=== PATIENT | male | born 1965 | race Caucasian/White ===

== ENCOUNTER 2021-06-19 22:03 | Inpatient (IN) | payer MEDICARE, OTHER ==
[2021-06-19] MEDS ORDERED: diphenhydrAMINE 50 MG/ML 1 ML VIAL IVP STA (22:43)
[2021-06-19] MEDS ORDERED: METOCLOPRAMIDE 5 MG/ML 2 ML VIAL IVP STA (22:43)
[2021-06-19] MEDS ORDERED: SODIUM CHLORIDE 0.9% 1,000 ML IV ONE (22:43)
--- NOTE | 2021-06-19 23:08 | CT ---
EXAMINATION TYPE: CT brain wo con DATE OF EXAM: 06/19/2021 COMPARISON: None HISTORY: Extreme anterior head pain CT DLP: 1335.4 mGycm Automated exposure control for dose reduction was used. There is poorly marginated hypodensity in the right posterior temporal lobe extending into the right occipital lobe. This area overall measures 6 x 4 cm. There appears to be some effacement of the occip ital horn right lateral ventricle. There is mild mass effect. The calvarium is intact. There is a steven ewhat rounded area of hypodensity within the lesion measuring 2 cm. IMPRESSION: There is edema in the right posterior temporal lobe with central rounded hypodensity. I would conside r the possibility of tumor or abscess. Follow-up recommended. Contrast CT scan or MR scan would BE he lpful for further evaluation.
[2021-06-19 23:16] LABS: ALT 37 U/L (4-49); AST 29 U/L (17-59); African American GFR (CKD) >90 (>60 ml/min/1.73 sqM); Albumin 3.9 g/dL (3.5-5.0); Alkaline Phosphatase 126 U/L (38-126); Anion Gap 12 mmol/L; Blood Urea Nitrogen 16 mg/dL (9-20); Calcium 9.4 mg/dL (8.4-10.2); Carbon Dioxide 20 mmol/L (22-30); Chloride 103 mmol/L (98-107); Glucose 263 mg/dL (74-99); Non-African American GFR(CKD) >90 (>60 ml/min/1.73 sqM); Potassium 4.4 mmol/L (3.5-5.1); Sodium 135 mmol/L (137-145); Total Bilirubin 0.9 mg/dL (0.2-1.3); Total Protein 7.5 g/dL (6.3-8.2)
[2021-06-19] MEDS ORDERED: RX INFO: IV CONTRAST WAS GIVEN 1 EACH MISC MISCELLANE PRN (23:36)
[2021-06-19 23:37] LABS: Basophils % (A) 0 %; Eosinophils % (A) 0 %; HCT 47.7 % (39.0-53.0); HGB 15.9 gm/dL (13.0-17.5); Lymphocytes # (A) 0.6 k/uL (1.0-4.8); Lymphocytes % (A) 5 %; MCH 31.6 pg (25.0-35.0); MCHC 33.3 g/dL (31.0-37.0); MCV 94.9 fL (80.0-100.0); Mean Platelet Volume 8.4; Monocytes # (A) 0.7 k/uL (0-1.0); Monocytes % (A) 5 %; Neutrophils # (A) 10.8 k/uL (1.3-7.7); Neutrophils % (A) 89 %; RBC 5.03 m/uL (4.30-5.90); RDW 15.2 % (11.5-15.5); WBC 12.2 k/uL (3.8-10.6)
[2021-06-19 23:54] LABS: Platelet Count 313 k/uL (150-450)
[2021-06-20] MEDS ORDERED: MORPHINE SULFATE 4 MG/ML SYRINGE IV STA (00:05)
--- NOTE | 2021-06-20 00:09 | ED ---
General Adult HPI - General Chief complaint: Altered Mental Status Stated complaint: Altered Mental Status Time Seen by Provider: 06/19/21 22:17 Source: patient, EMS Mode of arrival: EMS Limitations: altered mental status - History of Present Illness Initial comments: This patient is a 56-year-old man who arrives by ambulance. EMS had been called to the patient's residence because he did not seem like his usual self when his complaint of headache. Additional history from the patient's daughter reveals he has had intermittent headaches going back for a number of months. Patient denies neurologic symptoms. No change in vision. No weakness. -: days(s) Location: head Radiation: non-radiation Quality: aching Consistency: constant Improves with: none Worsens with: none Associated Symptoms: headaches Treatments Prior to Arrival: none - Related Data Previous Rx's Medication Instructions Recorded Albuterol Inhaler [Ventolin Hfa 1 puff INHALATION RT-TID #8 gm 06/12/21 Inhaler] Atorvastatin [Lipitor] 40 mg PO DAILY #30 tab 06/13/21 Fenofibrate [Lofibra] 160 mg PO DAILY #30 tab 06/13/21 INSULIN ASPART (NovoLOG) [NovoLOG 15 unit SQ AC-TID #10 ml 06/13/21 (formulary)] Insulin Detemir (Levemir) [Levemir] 30 unit SQ BID #10 ml 06/13/21 Allergies Allergy/AdvReac Type Severity Reaction Status Date / Time No Known Allergies Allergy Verified 06/19/21 22:43 Review of Systems ROS Statement: Those systems with pertinent positive or pertinent negative responses have been documented in the HPI. ROS Other: All systems not noted in ROS Statement are negative. Limitations: ROS unobtainable due to patients medical condition Constitutional: Denies: fever, weakness Eyes: Denies: vision change ENT: Denies: ear pain Respiratory: Denies: cough, dyspnea Cardiovascular: Denies: chest pain Gastrointestinal: Denies: abdominal pain, nausea, vomiting, diarrhea Genitourinary: Denies: dysuria Musculoskeletal: Denies: back pain Skin: Denies: rash Neurological: Reports: headache, confusion. Denies: weakness, numbness Past Medical History Past Medical History: Diabetes Mellitus, Hypertension, Pneumonia Additional Past Medical History / Comment(s): HTN but no meds taken for it, DKA, DM type 2 History of Any Multi-Drug Resistant Organisms: None Reported Past Surgical History: Orthopedic Surgery Additional Past Surgical History / Comment(s): back surgery Past Anesthesia/Blood Transfusion Reactions: No Reported Reaction Past Psychological History: No Psychological Hx Reported Smoking Status: Current every day smoker Past Alcohol Use History: None Reported Past Drug Use History: None Reported General Exam Limitations: no limitations General appearance: alert, in no apparent distress, anxious Head exam: Present: atraumatic, normocephalic, normal inspection Eye exam: Present: normal appearance, PERRL, EOMI. Absent: scleral icterus, conjunctival injection Neck exam: Present: normal inspection, full ROM. Absent: tenderness, meningismus Respiratory exam: Present: normal lung sounds bilaterally. Absent: respiratory distress, wheezes, rales, rhonchi, stridor Cardiovascular Exam: Present: regular rate, normal rhythm, normal heart sounds. Absent: systolic murmur, diastolic murmur, rubs, gallop GI/Abdominal exam: Present: soft. Absent: distended, tenderness, guarding, rebound, rigid Extremities exam: Present: normal inspection, normal capillary refill. Absent: pedal edema, calf tenderness Neurological exam: Present: alert, CN II-XII intact. Absent: altered Skin exam: Present: warm, dry, intact, normal color. Absent: rash Course Vital Signs 06/19/21 06/19/21 06/19/21 22:06 23:00 23:30 Temperature 99.5 F Pulse Rate 102 H 99 87 Respiratory 20 18 18 Rate Blood Pressure 149/90 158/94 152/79 O2 Sat by Pulse 93 L 96 96 Oximetry 06/20/21 06/20/21 06/20/21 00:00 01:00 02:00 Temperature Pulse Rate 60 114 H 100 Respiratory 18 18 18 Rate Blood Pressure 158/96 115/69 125/72 O2 Sat by Pulse 100 100 98 Oximetry 06/20/21 05:10 Temperature 99.5 F Pulse Rate 84 Respiratory 22 Rate Blood Pressure 127/78 O2 Sat by Pulse 93 L Oximetry Medical Decision Making - Lab Data Result diagrams: 06/19/21 22:51 06/19/21 22:51 Lab Results 06/19/21 06/19/21 06/19/21 Range/Units 22:51 22:51 22:51 WBC 12.2 H (3.8-10.6) k/uL RBC 5.03 (4.30-5.90) m/uL Hgb 15.9 (13.0-17.5) gm/dL Hct 47.7 (39.0-53.0) % MCV 94.9 (80.0-100.0) fL MCH 31.6 (25.0-35.0) pg MCHC 33.3 (31.0-37.0) g/dL RDW 15.2 (11.5-15.5) % Plt Count 313 D (150-450) k/uL MPV 8.4 Neutrophils % 89 % Lymphocytes % 5 % Monocytes % 5 % Eosinophils % 0 % Basophils % 0 % Neutrophils # 10.8 H (1.3-7.7) k/uL Lymphocytes # 0.6 L (1.0-4.8) k/uL Monocytes # 0.7 (0-1.0) k/uL Eosinophils # 0.0 (0-0.7) k/uL Basophils # 0.0 (0-0.2) k/uL Sodium 135 L (137-145) mmol/L Potassium 4.4 (3.5-5.1) mmol/L Chloride 103 (98-107) mmol/L Carbon Dioxide 20 L (22-30) mmol/L Anion Gap 12 mmol/L BUN 16 (9-20) mg/dL Creatinine 0.46 L (0.66-1.25) mg/dL Est GFR (CKD-EPI)AfAm >90 (>60 ml/min/1.73 sqM) Est GFR (CKD-EPI)NonAf >90 (>60 ml/min/1.73 sqM) Glucose 263 H (74-99) mg/dL Calcium 9.4 (8.4-10.2) mg/dL Total Bilirubin 0.9 (0.2-1.3) mg/dL AST 29 (17-59) U/L ALT 37 (4-49) U/L Alkaline Phosphatase 126 (38-126) U/L Troponin I <0.012 (0.000-0.034) ng/mL Total Protein 7.5 (6.3-8.2) g/dL Albumin 3.9 (3.5-5.0) g/dL Acetone, Qual Negative (Negative) Disposition Clinical Impression: Headache Narrative: Suspect brain malignancy right posterior temporal lobe Disposition: ADMITTED IP TO THIS HOSP Condition: Fair Is patient prescribed a controlled substance at d/c from ED?: No
[2021-06-20] MEDS ORDERED: LORazepam 2 MG/ML INJ IV STA (00:11)
--- NOTE | 2021-06-20 00:37 | CT ---
EXAMINATION TYPE: CT brain w con DATE OF EXAM: 06/20/2021 COMPARISON: Today HISTORY: AMS CT DLP: 1188.4 mGycm Automated exposure control for dose reduction was used. CONTRAST: Performed with IV Contrast, patient injected with 100 mL of Isovue 300. There are 2 ring-enhancing foci in the right posterior temporal parietal lobe. These are in contact w ith each other and measure 2.5 cm and 2.1 cm. There is some surrounding mild edema. There is apparent effacement of the occipital horn right lateral ventricle. There is no midline shift. Calvarium is in tact. There is normal aeration of the mastoid sinuses. IMPRESSION: There are 2 low density ring-enhancing masses in the right posterior temporal parietal lobe. There is thin ring of enhancement and mild adjacent edema. I would consider metastatic disease as well as carrol celina tumor such as glioma..
[2021-06-20] MEDS: DEXAMETHASONE SOD PHOSPHATE 10 MG/ML 1 ML VIAL IVP SCH ×2 (01:31→11:40)
[2021-06-20] MEDS ORDERED: NALOXONE 0.4 MG/ML 1 ML VIAL IV PRN (01:32)
[2021-06-20] MEDS ORDERED: MORPHINE SULFATE 4 MG/ML SYRINGE IV PRN (01:32)
[2021-06-20] MEDS: SODIUM CHLORIDE 0.9% 1,000 ML IV SCH (03:13)
[2021-06-20] MEDS: HYDROmorphone 0.5 MG/0.5 ML SYRINGE IVP PRN (04:12)
[2021-06-20] MEDS: ALBUTEROL NEBULIZED 2.5 MG/3 ML INHALATION SCH ×3 (08:51→21:30)
[2021-06-20] MEDS ORDERED: DEXAMETHASONE SOD PHOSPHATE 10 MG/ML 1 ML VIAL IVP SCH (09:00)
[2021-06-20 10:07] LABS: Glucose,Whole Blood 267 mg/dL (75-99)
[2021-06-20] MEDS ORDERED: HYDROmorphone 1 MG/ML 1 ML SYRINGE ONE (10:19)
[2021-06-20] MEDS ORDERED: HYDROmorphone 1 MG/ML 1 ML SYRINGE IVP PRN (10:23)
[2021-06-20] MEDS: INSULIN ASPART (NovoLOG) 100 UNIT/ML VIAL SQ SCH ×7 (10:30→20:18)
[2021-06-20] MEDS: ATORVASTATIN 40 MG TAB PO SCH (10:32)
[2021-06-20] MEDS ORDERED: RX INFO: IV CONTRAST WAS GIVEN 1 EACH MISC MISCELLANE PRN (10:38)
[2021-06-20] MEDS ORDERED: IOPAMIDOL CONTRAST (ORAL USE) VIAL PO PRN (10:38)
[2021-06-20] MEDS: INSULIN DETEMIR (LEVEMIR) 100 UNIT/ML SYR SQ SCH ×3 (11:19→21:25)
[2021-06-20] MEDS: FENOFIBRATE 160 MG TAB PO SCH (11:19)
[2021-06-20 11:59] LABS: Basophils % (A) 0 %; Eosinophils % (A) 0 %; HCT 42.3 % (39.0-53.0); HGB 14.4 gm/dL (13.0-17.5); Lymphocytes # (A) 0.7 k/uL (1.0-4.8); Lymphocytes % (A) 5 %; MCH 32.1 pg (25.0-35.0); MCV 94.5 fL (80.0-100.0); Mean Platelet Volume 7.9; Monocytes # (A) 0.8 k/uL (0-1.0); Monocytes % (A) 6 %; Neutrophils # (A) 11.4 k/uL (1.3-7.7); Neutrophils % (A) 88 %; Platelet Count 300 k/uL (150-450); RBC 4.48 m/uL (4.30-5.90); RDW 15.3 % (11.5-15.5)
[2021-06-20 12:15] LABS: African American GFR (CKD) >90 (>60 ml/min/1.73 sqM); Anion Gap 11 mmol/L; Blood Urea Nitrogen 11 mg/dL (9-20); Carbon Dioxide 21 mmol/L (22-30); Chloride 98 mmol/L (98-107); Glucose 266 mg/dL (74-99); Non-African American GFR(CKD) >90 (>60 ml/min/1.73 sqM); Potassium 4.3 mmol/L (3.5-5.1); Sodium 130 mmol/L (137-145)
--- NOTE | 2021-06-20 14:33 | P.CONS ---
History of Present Illness - Reason for Consult Consult date: 06/20/21 brain mass Requesting physician: Ray Yepez - Chief Complaint AMBRIZ, AMS - History of Present Illness Mr. Anderson is a pleasant male we have been asked to see because of ring enhancing lesion found in the post temporal parietal lobe on NADEEM. Pt daughter is at bedside and she provides some history. Pt has been c/o AMBRIZ for a few months, some mild confusion, this progressed rapidly over the last 3 days, the AMBRIZ was so severe and nothing was helping to relieve it so that is what led to the ER visit. Associated with disturbance in depth perception, denies syncopy or fall. Pt was juest treated for pneumonia one week ago, he has noted an increase in cough, he has smoked for 40 years. No vision changes, other neurological changes, fevers, sweats, unintentional wt. loss, dysphagia, odynophagia, N,V, chest pain, hemoptysis, abd pain, acute changes in bowel or bladder, i ncontinence or other pain. Review of Systems 14 point ROS is neg except as stated in HPI, daughter helped with history Past Medical History Past Medical History: Diabetes Mellitus, Hypertension, Pneumonia Additional Past Medical History / Comment(s): HTN but no meds taken for it, DKA, DM type 2 History of Any Multi-Drug Resistant Organisms: None Reported Past Surgical History: Orthopedic Surgery Additional Past Surgical History / Comment(s): back surgery, R leg surgery after fracture, elbow surgery, shoulder surgery Past Anesthesia/Blood Transfusion Reactions: No Reported Reaction Past Psychological History: No Psychological Hx Reported Smoking Status: Current every day smoker Past Alcohol Use History: None Reported Past Drug Use History: None Reported - Past Family History Mother Additional Family Medical History / Comment(s): dementia Father Family Medical History: Hypertension Medications and Allergies Home Medications Medication Instructions Recorded Confirmed Type Albuterol Inhaler [Ventolin Hfa 1 puff INHALATION RT-TID #8 gm 06/12/21 06/19/21 Rx Inhaler] Atorvastatin [Lipitor] 40 mg PO DAILY #30 tab 06/13/21 06/19/21 Rx Fenofibrate [Lofibra] 160 mg PO DAILY #30 tab 06/13/21 06/19/21 Rx INSULIN ASPART (NovoLOG) [NovoLOG 15 unit SQ AC-TID #10 ml 06/13/21 06/19/21 Rx (formulary)] Insulin Detemir (Levemir) [Levemir] 30 unit SQ BID #10 ml 06/13/21 06/19/21 Rx Allergies Allergy/AdvReac Type Severity Reaction Status Date / Time No Known Allergies Allergy Verified 06/19/21 22:43 Physical Exam Vitals: Vital Signs Temp Pulse Pulse Resp BP BP Pulse Ox 06/20/21 08:59 78 16 06/20/21 08:51 72 16 06/20/21 07:00 98 F 110 H 18 140/73 93 L 06/20/21 05:10 99.5 F 84 22 127/78 93 L 06/20/21 02:00 100 18 125/72 98 06/20/21 01:00 114 H 18 115/69 100 06/20/21 00:00 60 18 158/96 100 06/19/21 23:30 87 18 152/79 96 06/19/21 23:00 99 18 158/94 96 06/19/21 22:06 99.5 F 102 H 20 149/90 93 L Intake and Output 06/19/21 06/20/21 06/20/21 22:59 06:59 14:59 Other: Weight 104.78 kg 104.326 kg - Constitutional General appearance: average body habitus, cooperative, mild distress - EENT Eyes: anicteric sclerae, EOMI ENT: hearing grossly normal, normal oropharynx - Neck Neck: no lymphadenopathy - Respiratory Respiratory: bilateral: CTA, diminished - Cardiovascular Rhythm: regular Heart sounds: normal: S1, S2 Abnormal Heart Sounds: no systolic murmur, no diastolic murmur, no rub, no S3 Gallop, no S4 Gallop, no click, no other leg Peripheral Edema: bilateral: None - Gastrointestinal General gastrointestinal: no absent bowel sounds, no decreased bowel sounds, no distended, no hepatomegaly, no hyperactive bowel sounds, normal bowel sounds, no organomegaly, no rigid, no scaphoid, soft, no splenomegaly, no tenderness, no umbilical hernia, no ventral hernia - Musculoskeletal Musculoskeletal: strength equal bilaterally - Psychiatric Psychiatric: A&O x's 3, appropriate affect, intact judgment & insight Results CBC & Chem 7: 06/20/21 11:40 06/20/21 11:40 Labs: Abnormal Lab Results - Last 24 Hours (Table) 1006/19/21 06/20/21 Range/Units 22:51 22:51 09:55 WBC 12.2 H (3.8-10.6) k/uL Neutrophils # 10.8 H (1.3-7.7) k/uL Lymphocytes # 0.6 L (1.0-4.8) k/uL Sodium 135 L (137-145) mmol/L Carbon Dioxide 20 L (22-30) mmol/L Creatinine 0.46 L (0.66-1.25) mg/dL Glucose 263 H (74-99) mg/dL POC Glucose (mg/dL) 267 H (75-99) mg/dL MRI - head: report reviewed (with and without contrast reports reviewed) Assessment and Plan (1) Brain mass Current Visit: Yes Status: Acute Code(s): G93.89 - OTHER SPECIFIED DISORDERS OF BRAIN SNOMED Code(s): 829370676 (2) Headache Current Visit: Yes Status: Acute Code(s): R51.9 - HEADACHE, UNSPECIFIED SNOMED Code(s): 20291105 Plan: Dr. Young discussed with pt and daughter concerning findings on MRI brain. This could represent a primary brain tumor or metastatic disease. CT CAP ordered to evaluate for any other lesions that would be less invasive for biopsy. If no other lesion found, pt will have to be referred to Neurosurgeon for biopsy. Reviewed that it is necessary to have tissue confirmation in order to discuss treatment options that would be available and prognosis. Discussed case with Rad Onc who will review the MRI. Would like to hold off on starting steroids since steroids can alter findings if primary happens to be a lymphoma. attests: I have seen and examined pt, performed H&P, developed impression and plan of care. Discussed with dictator. Agree with documentation, documented as a scribe.
[2021-06-20 16:30] LABS: Glucose,Whole Blood 325 mg/dL (75-99)
[2021-06-20] MEDS: NICOTINE 14MG/24HR PATCH TRANSDERM SCH (16:48)
[2021-06-20] MEDS: ONDANSETRON 4 MG/2 ML VIAL IVP PRN (16:51)
[2021-06-20] MEDS ORDERED: KETOROLAC 15 MG/ML 1 ML VIAL IVP SCH (18:00)
[2021-06-20] MEDS ORDERED: KETOROLAC 15 MG/ML 1 ML VIAL IVP PRN (18:08)
--- NOTE | 2021-06-20 19:07 | MR ---
EXAMINATION TYPE: MR brain wo/w con DATE OF EXAM: 06/20/2021 COMPARISON: None HISTORY: Headache, evaluate posterior temporal mass. CONTRAST: Standard multiplanar, multisequence MRI departmental protocol utilizing 10 mL intravenous Gadavist ga dolinium contrast. There is a bilobed fluid signal mass in the right posterior temporal lobe. There is thin ring of enha ncement around the mass with contrast. The mass contains 2 lobes which measure 3.3 cm and 2.3 cm. The re is some white matter edema adjacent to the mass in the right posterior temporal lobe. There is steven e mild mass effect upon the occipital horn of the right lateral ventricle. There is no midline shift. Cerebellum is intact. There is normal enhancement of the venous sinuses. No other intra-axial enhanc ing mass identified. The corpus callosum is intact. Brainstem is intact. IMPRESSION: Bilobed ring enhancing mass right posterior temporal lobe with moderate surrounding white matter dang a. Mild mass effect. I would consider possibilities of primary brain tumor such as a glioma as well a s brain abscess. Metastatic disease is also possible.
[2021-06-20 20:01] LABS: Glucose,Whole Blood 233 mg/dL (75-99)
[2021-06-20] MEDS: PANTOPRAZOLE 40 MG/10 ML VIAL IVP SCH (20:19)
[2021-06-20] MEDS ORDERED: DEXAMETHASONE SOD PHOSPHATE 4 MG/ML 1 ML VIAL IVP SCH (21:00)
--- NOTE | 2021-06-20 21:07 | P.HPIM ---
History of Present Illness H&P Date: 06/20/21 This is a 56-year-old male with past medical history significant for a tobacco use with 40 year pack history, diabetes mellitus type 2, hypertension, hyper lipidemia, pneumonia, multiple orthopedic back surgeries with lumbar fusion. He is currently smoking half a pack per day however at his heaviest was smoking upwards of 2 packs per day. Patient is occasional drinker and denies any illicit drug use. Patient is also a diabetic type II, he checks his blood sugar at home is usually running in the 200s. Patient presented to the with complaints of a headache over his right temporal region as well as over his right forehead above his eye. He does state that he has had visual changes in both eyes and blurry vision any change in his depth perception. He has never had a routine eye exam. Patient denies any dizziness or lightheadedness however he does state that when he stands he does h ave some difficulty as he feels like the room is spinning. He was supposed to follow-up with ENT for evaluation for vertigo. This headache has been constant in severity unchanging and nonradiating has been persistent for the last 2 months. At the same time patient has stated that he has lower back pain has increased from his chronic for the last 2 months as well as a persistent productive cough for the last 2 months. Pt also admits to nausea and appetite changes last 2 months as well and does report some looser stools however there has been no blood in the stool. Patient does report a 40 pound weight loss over the last 5-[address] with contrast on admission shows 2 low density ring-enhancing masses in the right posterior temporoparietal lobe. There is then recurring of enhancement and mild adjacent edema. Consider metastatic disease as well as primary tumor such as glioma. Labs this admission include a WBC of 12.2, sodium 135, glucose of 263, troponin negative. His negative for acetone and his Covid PCR is negative. Oncology was consulted, CT chest abdomen pelvis with contrast agent was ordered as well as MR brain with and without contrast. Reports constant headache in the right temporal region REVIEW OF SYSTEMS: CONSTITUTIONAL: No fever, no malaise, no fatigue. HEENT: Reports constant headache in the right temporal region, reports vision changes in the last 2 months, bilateral eyes, blurry, with change in depth perception CARDIOVASCULAR: No chest pain, orthopnea, PND, no palpitations, no syncope. PULMONARY: No shortness of breath. Reports productive cough with clear to yellow sputum new in the last 2 months GASTROINTESTINAL: No diarrhea, reports n/v. no abdominal tenderness. NEUROLOGICAL: No weakness, no numbness. Reports constant deep throbbing headche over right forehead for the last 2 months. HEMATOLOGICAL: Denies any bleeding or petechiae. GENITOURINARY: Denies any burning micturition, frequency, or urgency. MUSCULOSKELETAL/RHEUMATOLOGICAL: Denies any joint pain, swelling. Reports chronic lumbar back pain, with changes in pain in the last 2 months. ENDOCRINE: Denies any polyuria or polydipsia. The rest of the 14-point review of systems is negative. PHYSICAL EXAMINATION: GENERAL: The patient is alert and oriented x3, not in any acute distress. Well developed, well nourished. HEENT: Pupils are round and equally reacting to light. EOMI. No scleral icterus. No conjunctival pallor. Normocephalic, atraumatic. No pharyngeal erythema. No thyromegaly. CARDIOVASCULAR: S1 and S2 present. No murmurs, rubs, or gallops. PULMONARY: Chest is clear to auscultation, no wheezing or crackles. ABDOMEN: Soft, nontender, nondistended, normoactive bowel sounds. No palpable organomegaly. MUSCULOSKELETAL: No joint swelling or deformity. EXTREMITIES: No cyanosis, clubbing, or pedal edema. NEUROLOGICAL: Gross neurological examination did not reveal any focal deficits. SKIN: No rashes. 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 Pending MR brain and CT Chest, abdomen, pelvis Adjust insulin for hyperglycemia Pain management Repeat labs Past Medical History Past Medical History: Diabetes Mellitus, Hypertension, Pneumonia Additional Past Medical History / Comment(s): HTN but no meds taken for it, DKA, DM type 2 History of Any Multi-Drug Resistant Organisms: None Reported Past Surgical History: Orthopedic Surgery Additional Past Surgical History / Comment(s): back surgery, R leg surgery after fracture, elbow surgery, shoulder surgery Past Anesthesia/Blood Transfusion Reactions: No Reported Reaction Past Psychological History: No Psychological Hx Reported Smoking Status: Current every day smoker Past Alcohol Use History: None Reported Past Drug Use History: None Reported - Past Family History Mother Additional Family Medical History / Comment(s): dementia Father Family Medical History: Hypertension Medications and Allergies Home Medications Medication Instructions Recorded Confirmed Type Albuterol Inhaler [Ventolin Hfa 1 puff INHALATION RT-TID #8 gm 06/12/21 06/19/21 Rx Inhaler] Atorvastatin [Lipitor] 40 mg PO DAILY #30 tab 06/13/21 06/19/21 Rx Fenofibrate [Lofibra] 160 mg PO DAILY #30 tab 06/13/21 06/19/21 Rx INSULIN ASPART (NovoLOG) [NovoLOG 15 unit SQ AC-TID #10 ml 06/13/21 06/19/21 Rx (formulary)] Insulin Detemir (Levemir) [Levemir] 30 unit SQ BID #10 ml 06/13/21 06/19/21 Rx Allergies Allergy/AdvReac Type Severity Reaction Status Date / Time No Known Allergies Allergy Verified 06/19/21 22:43 Physical Exam Vitals: Vital Signs Temp Pulse Pulse Resp BP BP Pulse Ox 06/20/21 08:59 78 16 06/20/21 08:51 72 16 06/20/21 07:00 98 F 110 H 18 140/73 93 L 06/20/21 05:10 99.5 F 84 22 127/78 93 L 06/20/21 02:00 100 18 125/72 98 06/20/21 01:00 114 H 18 115/69 100 06/20/21 00:00 60 18 158/96 100 06/19/21 23:30 87 18 152/79 96 06/19/21 23:00 99 18 158/94 96 06/19/21 22:06 99.5 F 102 H 20 149/90 93 L Intake and Output 06/19/21 06/20/21 06/20/21 22:59 06:59 14:59 Other: Weight 104.78 kg 104.326 kg Results CBC & Chem 7: 10/27/21 11:40 06/20/21 11:40 Labs: Abnormal Lab Results - Last 24 Hours (Table) 06/19/21 06/19/21 06/20/21 Range/Units 22:51 22:51 09:55 WBC 12.2 H (3.8-10.6) k/uL Neutrophils # 10.8 H (1.3-7.7) k/uL Lymphocytes # 0.6 L (1.0-4.8) k/uL Sodium 135 L (137-145) mmol/L Carbon Dioxide 20 L (22-30) mmol/L Creatinine 0.46 L (0.66-1.25) mg/dL Glucose 263 H (74-99) mg/dL POC Glucose (mg/dL) 267 H (75-99) mg/dL Assessment and Plan Time with Patient: Greater than 30
[2021-06-20] MEDS: HEPARIN SODIUM,PORCINE/PF 5,000 UNIT/0.5 ML SYRINGE SQ SCH (22:15)
[2021-06-20] MEDS: ACETAMINOPHEN TAB 500 MG TAB PO PRN (23:50)
[2021-06-21] MEDS: ONDANSETRON 4 MG/2 ML VIAL IVP PRN ×3 (00:42→17:14)
[2021-06-21] MEDS: HYDROmorphone 0.5 MG/0.5 ML SYRINGE IVP PRN ×5 (00:49→15:04)
[2021-06-21 01:45] LABS: Glucose,Whole Blood 214 mg/dL (75-99)
[2021-06-21] MEDS: SODIUM CHLORIDE 0.9% 1,000 ML IV SCH (03:14)
[2021-06-21] MEDS: ACETAMINOPHEN TAB 500 MG TAB PO PRN (06:03)
[2021-06-21] MEDS ORDERED: ONDANSETRON 4 MG/2 ML VIAL IVP STA (07:24)
[2021-06-21 08:00] LABS: Glucose,Whole Blood 241 mg/dL (75-99)
[2021-06-21] MEDS: NICOTINE 14MG/24HR PATCH TRANSDERM SCH (08:02)
[2021-06-21] MEDS: ATORVASTATIN 40 MG TAB PO SCH (08:02)
[2021-06-21] MEDS: HEPARIN SODIUM,PORCINE/PF 5,000 UNIT/0.5 ML SYRINGE SQ SCH (08:02)
[2021-06-21] MEDS: INSULIN ASPART (NovoLOG) 100 UNIT/ML VIAL SQ SCH ×6 (08:03→17:14)
[2021-06-21] MEDS: INSULIN DETEMIR (LEVEMIR) 100 UNIT/ML SYR SQ SCH (08:03)
[2021-06-21] MEDS: PANTOPRAZOLE 40 MG/10 ML VIAL IVP SCH (08:04)
[2021-06-21] MEDS: FENOFIBRATE 160 MG TAB PO SCH (08:04)
[2021-06-21 08:24] LABS: Basophils % (A) 0 %; Eosinophils % (A) 0 %; HGB 14.8 gm/dL (13.0-17.5); Lymphocytes % (A) 11 %; MCH 31.5 pg (25.0-35.0); MCHC 32.8 g/dL (31.0-37.0); MCV 96.1 fL (80.0-100.0); Mean Platelet Volume 7.7; Monocytes # (A) 0.5 k/uL (0-1.0); Monocytes % (A) 5 %; Neutrophils # (A) 7.4 k/uL (1.3-7.7); Neutrophils % (A) 83 %; Platelet Count 290 k/uL (150-450); RBC 4.68 m/uL (4.30-5.90); RDW 14.6 % (11.5-15.5)
[2021-06-21] MEDS: ALBUTEROL NEBULIZED 2.5 MG/3 ML INHALATION SCH ×2 (08:26→15:14)
[2021-06-21 08:33] LABS: ALT 26 U/L (4-49); AST 20 U/L (17-59); African American GFR (CKD) >90 (>60 ml/min/1.73 sqM); Albumin 3.5 g/dL (3.5-5.0); Alkaline Phosphatase 111 U/L (38-126); Anion Gap 8 mmol/L; Blood Urea Nitrogen 16 mg/dL (9-20); Calcium 9.4 mg/dL (8.4-10.2); Carbon Dioxide 24 mmol/L (22-30); Chloride 99 mmol/L (98-107); Glucose 246 mg/dL (74-99); Magnesium 1.9 mg/dL (1.6-2.3); Non-African American GFR(CKD) >90 (>60 ml/min/1.73 sqM); Potassium 4.4 mmol/L (3.5-5.1); Sodium 131 mmol/L (137-145); Total Bilirubin 0.9 mg/dL (0.2-1.3)
--- NOTE | 2021-06-21 09:59 | CT ---
EXAMINATION TYPE: CT ChestAbdPelvis w con DATE OF EXAM: 06/21/2021 COMPARISON: CTA chest 12 days ago. HISTORY: brain mass CT DLP: 2290.4 mGycm. Automated Exposure Control for Dose Reduction was Utilized. CONTRAST: CT scan of the thorax, abdomen and pelvis is performed without oral but with IV Contrast, patient inj ected with 100 mL of Isovue 300. FINDINGS: LUNGS: Low lung volumes redemonstrated. There is dependent atelectasis. There is new posterior lower lung atelectasis and/or developing consolidation. No pleural effusion or pneumothorax seen bilaterall y MEDIASTINUM: There are no greater than 1 cm hilar or mediastinal lymph nodes. No cardiomegaly or pe ricardial effusion is seen. LIVER/GB: Liver remains heterogeneously hypodense suggesting diffuse fatty infiltration. PANCREAS: No significant abnormality is seen. SPLEEN: No significant abnormality is seen. ADRENALS: No significant abnormality is seen. KIDNEYS: Symmetric cortical medullary uptake and excretion without hydronephrosis seen bilaterally. F ew scattered simple-appearing thin-walled cysts throughout both kidneys. BOWEL: Suboptimal evaluation of bowel without enteric contrast. Stomach poorly distended and thus sub optimally evaluated. No suspicious small or large bowel dilatation. Normal-appearing appendix in the right lower quadrant from the cecum. Scattered colonic diverticulosis, no convincing CT evidence for acute diverticulitis. GENITAL ORGANS: Prostate gland mildly enlarged bulging on bladder base.. LYMPH NODES: No greater than 1cm abdominal or pelvic lymph nodes are appreciated. OSSEOUS STRUCTURES: Postsurgical change to the lumbar spine. There is reversal of normal lumbar curva ture. Metallic disc material at L2-L3 level with left lateral fusion hardware. Artificial hyperdense disc material at L4-L5 and L5-S1 level. Less than optimal posterior positioning of the disc material L5-S1 level. Some bridging osteophytes and ossific fusion in the mid to lower lumbar spine. Posterior decompression changes. Mid to lower lumbar spine facet arthropathy. Well-defined lucency from prior surgical change in the upper sacrum. OTHER: No significant additional abnormality is seen. IMPRESSION: No obvious mass or adenopathy to suggest primary neoplasm.
[2021-06-21 11:47] LABS: Glucose,Whole Blood 183 mg/dL (75-99)
[2021-06-21] MEDS ORDERED: Magnesium Replacement Protocol 1 EACH MISC MISCELLANE PRN (12:01)
[2021-06-21] MEDS: MAGNESIUM SULFATE-D5W PMX 1 GM in DEXTROSE/WATER 1 100ML.BAG IVPB SCH (13:12)
[2021-06-21] MEDS ORDERED: DEXAMETHASONE SOD PHOSPHATE 4 MG/ML 1 ML VIAL IVP SCH ×3 (14:00→16:00)
--- NOTE | 2021-06-21 14:18 | P.PN ---
Subjective Progress Note Date: 06/21/21 This is a 56-year-old male with past medical history significant for a tobacco use with 40 year pack history, diabetes mellitus type 2, hypertension, hyper lipidemia, pneumonia, multiple orthopedic back surgeries with lumbar fusion. He is currently smoking half a pack per day however at his heaviest was smoking upwards of 2 packs per day. Patient is occasional drinker and denies any illicit drug use. Patient is also a diabetic type II, he checks his blood sugar at home is usually running in the 200s. Patient presented to the with complaints of a headache over his right temporal region as well as over his right forehead above his eye. He does state that he has had visual changes in both eyes and blurry vision any change in his depth perception. He has never had a routine eye exam. Patient denies any dizziness or lightheadedness however he does state that when he stands he does have some difficulty as he feels like the room is spinning. He was supposed to follow-up with ENT for evaluation for vertigo. This headache has been constant in severity unchanging and nonradiating has been persistent for the last 2 months. At the same time patient has stated that he has lower back pain has increased from his chronic for the last 2 months as well as a persistent productive cough for the last 2 months. Pt also admits to nausea and appetite changes last 2 months as well and does report some looser stools however there has been no blood in the stool. Patient does report a 40 pound weight loss over the last 5-[address] with contrast on admission shows 2 low density ring-enhancing masses in the right posterior temporoparietal lobe. There is then recurring of enhancement and mild adjacent edema. Consider metastatic disease as well as primary tumor such as glioma. Labs this admission include a WBC of 12.2, sodium 135, glucose of 263, troponin negative. His negative for acetone and his Covid PCR is negative. Oncology was consulted, CT chest abdomen pelvis with contrast agent was ordered as well as MR brain with and without contrast. Reports constant headache in the right temporal region 06/21/2021 Patient is resting in the bed from examination. His daughters remains at bedside. Brain MRI was completed that shows a bilobed ring-enhancing mass right posterior temporal lobe with moderate surrounding white matter edema. There is mild mass effect. Chest abdomen pelvis CT shows no obvious mass or adenopathy to suggest primary neoplasm. There are no greater than 1 cm abdominal or pelvic lymph nodes. There are no greater than 1 cm hilar or mediastinal lymph nodes. There are postsurgical changes to the lumbar spine. There are posterior decompression changes, as well as metallic disc material at all to through L3 with left lateral fusion hardware as well as hyperdense disc material at L4 to L5 and L5 to S1. There is less than optimal posterior positioning of the disc material L5 to S1. Labs today show a blood count panel that is unremarkable. Sodium level is 131, BUN 16, creatinine 0.50. Glucose remains elevated in the low 200s, 183 last checked. Magnesium today is 1.9 today we gave 2 bags of replacement. Patient was evaluated by oncology services who feels that findings on imaging could represent a primary brain tumor or metastatic disease. Oncology recommends transfer for neurosurgery for biopsy as there was no other lesions found on CT CAP. We consulted neurology services for evaluation of this patient. Recommend starting IV Decadron 4 mg every 6 hours. Also agree with transfer to higher level of care for consult to neurosurgery. Because patient is symptomatic, he has ongoing constant headache in the right temporal region as well as vision changes with blurry vision and changes to his depth perception. ROS Constitutional: Denied any fatigue denied any fever. Cardio vascular: denied any chest pain, palpitations Gastrointestinal denied any nausea vomiting Pulmonary: Denied any shortness of breath , reports intermittent dry cough new- onset 2 months ago Neurologic: Reports headache right temporal lobe, reports blurry vision, reports changes to depth perception, denies numbness or tingling, denies focal weakness All inpatient medications were reviewed and appropriate changes in these m edications as dictated in the interval history and assessment and plan. PHYSICAL EXAMINATION: GENERAL: The patient is alert and oriented x3, not in any acute distress. Well developed, well nourished. HEENT: Pupils are round and equally reacting to light. EOMI. No scleral icterus. No conjunctival pallor. Normocephalic, atraumatic. No pharyngeal erythema. No thyromegaly. CARDIOVASCULAR: S1 and S2 present. No murmurs, rubs, or gallops. PULMONARY: Chest is clear to auscultation, no wheezing or crackles. ABDOMEN: Soft, nontender, nondistended, normoactive bowel sounds. No palpable organomegaly. Abdomen is round and obese MUSCULOSKELETAL: No joint swelling or deformity. EXTREMITIES: No cyanosis, clubbing, or pedal edema. NEUROLOGICAL: Gross neurological examination did not reveal any focal deficits. SKIN: No rashes. Assessment and plan Assessment Brain lesion of unknown etiology, primary lesion versus metastasis, MRI follow- up confirmed lesion CT chest abdomen and pelvis was essentially negative for any obvious mass or adenopathy to suggest a primary source for the lesion Headache new-onset 2 months ago, workup in progress Leukocytosis, reactive Hyponatremia, proabably from SIADH d/t uncontrolled pain History of chronic tobacco use with a 40+ pack-year history Diabetes mellitus type 2 with hyperglycemia, recent new-onset admitted for DKA 2 weeks ago, A1c 16.8 Hypertension Hyperlipidemia Full Code GI Prophylaxis: Protonix DVT Prophylaxis: SQ Hep Plan Begin IV push Decadron 4 mg every 6 hours MR brain completed and CT chest abdomen pelvis has been completed Adjust insulin for hyperglycemia Pain management Repeat labs Pending transfer to higher level of care for consult to neurosurgery Objective - Vital Signs Vital signs: Vital Signs Temp 98.7 F 06/21/21 09:45 Pulse 84 06/21/21 09:45 Resp 16 06/21/21 09:45 BP 129/66 06/21/21 09:45 Pulse Ox 93 L 06/21/21 09:45 Intake & Output 06/20/21 06/21/21 06/21/21 18:59 06:59 18:59 Intake Total 20 Balance 20 Weight 104.326 kg Intake: IV 20 0.9 20 Other: # Voids 2 - Labs CBC & Chem 7: 06/21/21 07:38 06/21/21 07:38 Labs: Abnormal Lab Results - Last 24 Hours (Table) 06/20/21 06/20/21 06/20/21 Range/Units 11:40 11:40 16:28 WBC 13.0 H (3.8-10.6) k/uL Neutrophils # 11.4 H (1.3-7.7) k/uL Lymphocytes # 0.7 L (1.0-4.8) k/uL Sodium 130 L (137-145) mmol/L Carbon Dioxide 21 L (22-30) mmol/L Creatinine 0.45 L (0.66-1.25) mg/dL Glucose 266 H (74-99) mg/dL POC Glucose (mg/dL) 325 H (75-99) mg/dL 06/20/21 06/21/21 06/21/21 Range/Units 20:00 01:42 07:38 WBC (3.8-10.6) k/uL Neutrophils # (1.3-7.7) k/uL Lymphocytes # (1.0-4.8) k/uL Sodium 131 L (137-145) mmol/L Carbon Dioxide (22-30) mmol/L Creatinine 0.50 L (0.66-1.25) mg/dL Glucose 246 H (74-99) mg/dL POC Glucose (mg/dL) 233 H 214 H (75-99) mg/dL 06/21/21 Range/Units 07:58 WBC (3.8-10.6) k/uL Neutrophils # (1.3-7.7) k/uL Lymphocytes # (1.0-4.8) k/uL Sodium (137-145) mmol/L Carbon Dioxide (22-30) mmol/L Creatinine (0.66-1.25) mg/dL Glucose (74-99) mg/dL POC Glucose (mg/dL) 241 H (75-99) mg/dL Assessment and Plan Time with Patient: Greater than 30
--- NOTE | 2021-06-21 14:44 | P.CNNES ---
History of Present Illness Consult date: 06/21/21 Requesting physician: Vi De Guzman Reason for Consult: headache History of Present Illness: This is a 56-year-old gentleman with history newly diagnosed brain mass, diabetes mellitus, hypertension, hyperlipidemia, chronic low back pain with multiple surgeries, chronic tobacco user who presented emergency department on 06/19/2021 because of a complaint of a headache. His daughter is at bedside and helps with the history. Patient has been having headache for the ast 2 1/2 months. The headaches are over the bilateral frontal region without radiation, are sharp, 8-19/10, constant, has some photophobia and phonophobia. Also has nausea and vomiting associated with it. The headaches slightly improves with OTC Tylenol (taking 500mg 4 tab bid). Per daughter his balance has been off and his vision is affected as in he tries to cone picker things but he is off target. He denies any focal weakness, or new numbness. Feels he is having difficulty swallowing for the past 2 1/2 month with solids and liquids. He has not seen anyone since was having insurance issues and was Living in [place]. He back to [place] November 2020. During the hospital stay, patient had CT of the head which was reported as a 2 low density ring-enhancing masses in the right posterior temporal parietal lobe. There is thin ringing off and has met and mild adjacent edema. Consider metastasis disease as well as primary tumor such as glioma. The patient had an MRI of brain with and without which is reported as bilobed ring enhancing mass ring posterior temporal lobe with moderate surrounding white matter edema. Mild mass effect. I would consider possibly a primary brain tumor such as glioma as well as a brain abscess. Metastasis disease is also possible. I personally reviewed the MRI the brain and I felt that the patient does have a mass over the right posterotemporal parietal and the somewhat over occipital region. There is also vasogenic edema that he had on the imaging. Initially the primary team started the patient on Decadron but the oncology asked to be held since they were concerned that the patient might have lymphoma and they did not want to be masked. Other workup in the hospital consisted of: Initial vital signs is blood pressure of 140/90, heart rate of 102, respiratory of 20, temperature of 99.5 Fahrenheit oral and pulse ox of 93% room air. Since the patient has been the hospital the patient has been afebrile. Initial white blood cells 12.2 thousand and the predominantly neutrophilic but t hen the repeated blood blood cell is 9.0. Initial sodium is 135 and a most recent sodium is 131. Creatinine is 0.45, calcium is 9.0, magnesium 1.9. Initial glucose is 263. Lerma virus PCR was not detected. CT abdomen and pelvis reported as no obvious mass or adenopathy to suggest primary neoplasm. Review of Systems Review of system: The 12 point system was reviewed and apparent positive and negative per HPI. Past Medical History Past Medical History: Diabetes Mellitus, Hypertension, Pneumonia Additional Past Medical History / Comment(s): HTN but no meds taken for it, DKA, DM type 2 History of Any Multi-Drug Resistant Organisms: None Reported Past Surgical History: Orthopedic Surgery Additional Past Surgical History / Comment(s): back surgery, R leg surgery after fracture, elbow surgery, shoulder surgery Past Anesthesia/Blood Transfusion Reactions: No Reported Reaction Past Psychological History: No Psychological Hx Reported Smoking Status: Current every day smoker Past Alcohol Use History: None Reported Past Drug Use History: None Reported - Past Family History Mother Additional Family Medical History / Comment(s): dementia Father Family Medical History: Hypertension Medications and Allergies Home Medications Medication Instructions Recorded Confirmed Type Albuterol Inhaler [Ventolin Hfa 1 puff INHALATION RT-TID #8 gm 06/12/21 06/19/21 Rx Inhaler] Atorvastatin [Lipitor] 40 mg PO DAILY #30 tab 06/13/21 06/19/21 Rx Fenofibrate [Lofibra] 160 mg PO DAILY #30 tab 06/13/21 06/19/21 Rx INSULIN ASPART (NovoLOG) [NovoLOG 15 unit SQ AC-TID #10 ml 06/13/21 06/19/21 Rx (formulary)] Insulin Detemir (Levemir) [Levemir] 30 unit SQ BID #10 ml 06/13/21 06/19/21 Rx Allergies Allergy/AdvReac Type Severity Reaction Status Date / Time No Known Allergies Allergy Verified 06/19/21 22:43 Physical Examination - Vital Signs Vital Signs: Vital Signs Temp Pulse Pulse Resp BP Pulse Ox 06/21/21 09:45 98.7 F 84 16 129/66 93 L 06/21/21 08:28 88 06/21/21 01:45 98.4 F 84 15 135/81 95 06/20/21 19:20 98.1 F 85 15 119/69 98 06/20/21 15:00 98 F 99 18 138/70 94 L Intake and Output 06/20/21 06/21/21 06/21/21 22:59 06:59 14:59 Other: Voiding Method Toilet # Voids 2 2 GENERAL: The patient is lying in bed and is in moderate acute distress. CHEST: The heart rate is regular rate rhythm. No murmurs to auscultation. LUNG: Clear to auscultation bilaterally no wheezing noted throughout. Not labored breathing. ABDOMEN/GI: Bowel sounds present in all 4 quadrants. No tenderness to palpation throughout. NEUROLOGICAL: Higher mental function: The patient is awake, alert, oriented to self and place. He is oriented to year but did not know the month. Patient is able to name objects correctly (pen, watch and glasses). Patient is following commands. No aphasia and no neglect. Cranial nerves: The pupils are round, equal and reactive to light. The patient has ptosis over the right eye. Visual baird is left lower quadrant homonymous anopsia to confrontation throughout. Extraocular movement is intact no nystagmus is noted. Facial sensation is normal to touch throughout. The facial strength is normal throughout. Hearing is normal bilaterally to hand rub. Tongue is midline and moved [id number] without any difficulty. No dysarthria is noted. Shoulder shrug is normal bilaterally. Motor: Gait is deferred. The strength is uppers is 4+ to 5- symeterically. Knee extension is 5- otherwise 5/5 bilaterally. Normal tone. Normal tone throughout. Cerebellum: Normal finger to nose bilaterally. Sensation: Sensation is decreased from knee down to tips of toes bilaterally (old since his back surgeries per daughter). Otherwise normal to touch throughout. Reflexes (right/left): 1+ throughout uppers. Patellars are 0 and ankles are 1+ Plantars are mute bilaterally. Results - Laboratory Findings CBC and BMP: 06/21/21 07:38 06/21/21 07:38 Abnormal Lab Findings: Abnormal Labs 06/19/21 06/19/21 06/20/21 22:51 22:51 09:55 WBC 12.2 H Neutrophils # 10.8 H Lymphocytes # 0.6 L Sodium 135 L Carbon Dioxide 20 L Creatinine 0.46 L Glucose 263 H POC Glucose (mg/dL) 267 H 06/20/21 06/20/21 06/20/21 11:40 11:40 16:28 WBC 13.0 H Neutrophils # 11.4 H Lymphocytes # 0.7 L Sodium 130 L Carbon Dioxide 21 L Creatinine 0.45 L Glucose 266 H POC Glucose (mg/dL) 325 H 06/20/21 06/21/21 06/21/21 20:00 01:42 07:38 WBC Neutrophils # Lymphocytes # Sodium 131 L Carbon Dioxide Creatinine 0.50 L Glucose 246 H POC Glucose (mg/dL) 233 H 214 H 06/21/21 06/21/21 07:58 11:44 WBC Neutrophils # Lymphocytes # Sodium Carbon Dioxide Creatinine Glucose POC Glucose (mg/dL) 241 H 183 H Assessment and Plan Assessment: Brain mass over predominantly right posterior temporal/parietal/occipital region. Appears primary (Radiology team stated possibly abscess as well (but I feel less likely) Vasogenic edema due to above Cephaglia due to above Chronic low back pain with multiple surgeries (fusion and per daughter lumbar and possibly thoracic and had total of 7 and last surgery was 2018) Diabetes mellitus History of hypertension History of hyperlipidemia Chronic tobacco use more than 40+ packs history (was smoking 2 PPD but has cut down to 1/2PPD) Plan: Recommend Decadron 4 mg every 4 hours. Every 4 hours neuro checks On Zofran 4 mg IV every 6 hours when necessary Oncology the team is on board. Will deffer his sugar management to the primary team. We'll defer the rest of medical management with the primary team. Recommend the patient to be transfered to a teritiary facility for evaluation by neurosurgery team. The plan is discussed with the patient and his daughter (Cristiane) who is at bedside. Also discussed with the primary team. Thank you for the Consultation. Hima Vázquez M.D. Neuro-hospitalist Time with Patient: Greater than 30
[2021-06-21 14:51] VITALS: BP 121/68; PULSE 77; RESP 20; TEMP 98.2
[2021-06-21 17:01] LABS: Glucose,Whole Blood 120 mg/dL (75-99)
[2021-06-21] MEDS ORDERED: PANTOPRAZOLE 40 MG TABLET PO SCH (21:00)
--- NOTE | 2021-06-22 14:30 | P.DS ---
Providers Date of admission: 06/20/21 01:32 Attending physician: Jarek Anderson Consults: 06/20/21 01:35 Consult Physician Routine Consulting Provider: Good Young Consult Reason/Comments: Right posterior-temporal brain mass Do you want consulting provider notified?: Yes 06/21/21 11:59 Consult Physician Routine Consulting Provider: Hima Vázquez Consult Reason/Comments: headache Do you want consulting provider notified?: Yes Primary care physician: Stated None Hospital Course: As recommended by neurology and oncology services patient was transferred to tertiary [facility] for evaluation by neurosurgery for diagnostics of brain lession found on brain CT and MR Brain. Patient was transferred to [facility] via [facility] in the evening of 06/21/2021. Accepting physician was Dr. Cole with Neurosurgery. Please see progress note for further information regarding patient and transfer. Patient Condition at Discharge: Fair Plan - Discharge Summary Discharge Rx Participant: Yes New Discharge Prescriptions: No Action Albuterol Inhaler [Ventolin Hfa Inhaler] 1 puff INHALATION RT-TID #8 gm Atorvastatin [Lipitor] 40 mg PO DAILY #30 tab Fenofibrate [Lofibra] 160 mg PO DAILY #30 tab Insulin Detemir (Levemir) [Levemir] 30 unit SQ BID #10 ml INSULIN ASPART (NovoLOG) [NovoLOG (formulary)] 15 unit SQ AC-TID #10 ml Discharge Medication List Albuterol Inhaler [Ventolin Hfa Inhaler] 1 puff INHALATION RT-TID #8 gm 06/12/21 [Rx] Atorvastatin [Lipitor] 40 mg PO DAILY #30 tab 06/13/21 [Rx] Fenofibrate [Lofibra] 160 mg PO DAILY #30 tab 06/13/21 [Rx] INSULIN ASPART (NovoLOG) [NovoLOG (formulary)] 15 unit SQ AC-TID #10 ml 06/13/21 [Rx] Insulin Detemir (Levemir) [Levemir] 30 unit SQ BID #10 ml 06/13/21 [Rx] Follow up Appointment(s)/Referral(s): None,Stated [Primary Care Provider] - 1-2 days [facility] - 1-2 Days Discharge Disposition: TRANSFER TO SHORT TERM HOSP
== END 2021-06-21 18:30 | disposition short-term general hospital (02) | DRG 70 ==
LOC: EC 22:03 → 5NMEDONC 06-20 01:32 → 1SOBS 06-20 05:08
PROVIDERS: ADMIT Hospitalist; ATTEND Hospitalist
DX: G93.89 Other specified disorders of brain (principal); G93.6 Cerebral edema; E22.2 Syndrome of inappropriate secretion of antidiuretic hormone; D72.829 Elevated white blood cell count, unspecified; E78.5 Hyperlipidemia, unspecified; M54.5 Low back pain; F17.210 Nicotine dependence, cigarettes, uncomplicated; E11.65 Type 2 diabetes mellitus with hyperglycemia; G89.29 Other chronic pain; I10 Essential (primary) hypertension; Z79.4 Long term (current) use of insulin; Z79.899 Other long term (current) drug therapy; Z82.49 Family history of ischemic heart disease and other diseases of the circulatory system; Z87.01 Personal history of pneumonia (recurrent); Z20.822 Contact with and (suspected) exposure to COVID-19; Z98.1 Arthrodesis status; Z98.890 Other specified postprocedural states; Z79.84 Long term (current) use of oral hypoglycemic drugs
CPT/HCPCS: 36415; 70450; 70460; 70553; 71260; 74177; 80048; 80053; 82009; 83735; 84484; 85025; 87635; 94640; 96361; 96374; 96375; 99285